=== PATIENT | male | born 1960 | race Two or more races ===

== ENCOUNTER → 2024-03-17 14:20 | Outpatient (REF) | payer OTHER, SELFPAY | LOC: HO.SL 14:20 | PROVIDERS: PCP Family Medicine; Visit Provider Family Medicine | DX: G47.33 Obstructive sleep apnea (adult) (pediatric) (principal) | CPT/HCPCS: 95806 ==

== ENCOUNTER → 2024-03-17 19:00 | Outpatient (BNV) | payer OTHER, SELFPAY | PROVIDERS: PCP Family Medicine; Visit Provider Internal Medicine | DX: G47.33 Obstructive sleep apnea (adult) (pediatric) (principal) | CPT/HCPCS: 95806 ==